=== PATIENT | female | born 1955 | race Caucasian/White ===

== ENCOUNTER 2023-01-30 13:00 | Observation (INO) ==
[2023-01-30] MEDS ORDERED: IOPAMIDOL 100 ML BOTTLE IV ONE (13:01)
[2023-01-30] MEDS ORDERED: 0.9 % SODIUM CHLORIDE 1,000 ML IV ONE (13:27)
[2023-01-30] MEDS ORDERED: IPRATROPIUM/ALBUTEROL 3 ML AMPUL.NEB NEB ONE (13:28)
[2023-01-30 13:37] LABS: POC Calcium, Ionized 0.93 (1.16-1.32); POC Creatinine 0.8 (0.6-1.2); POC Potassium 2.6 (3.3-5.1)
[2023-01-30] MEDS ORDERED: POTASSIUM CHLORIDE 20 MEQ TABLET PO ONE (14:04)
[2023-01-30 14:05] LABS: Basophils # (Auto) 0.02 K/mcL (0.00-0.30); Basophils % (Auto) 0.3 % (0.0-2.0); Eosinophils # (Auto) 0.02 K/mcL (0.00-0.70); Eosinophils % (Auto) 0.3 % (0.0-7.0); Hematocrit 37.2 % (34.1-44.9); Hemoglobin 12.9 g/dL (11.2-15.7); Lymphocytes # (Auto) 0.58 K/mcL (1.50-4.80); Lymphocytes % (Auto) 9.9 % (15.5-49.0); Mean Cell Volume 85.5 fL (80.0-100.0); Mean Corpuscular HGB Conc 34.7 g/dL (31.0-36.0); Mean Platelet Volume 10.1 fL (8.8-12.5); Monocytes # (Auto) 0.44 K/mcL (0.10-0.90); Monocytes % (Auto) 7.5 % (1.0-12.0); Neutrophils % (Auto) 81.5 % (38.0-78.0); Platelet Count 336 K/mcL (140-440); RBC 4.35 M/mcL (3.59-5.38); WBC 5.9 K/mcL (4.5-11.0)
[2023-01-30 14:28] LABS: Bilirubin,Direct 0.2 mg/dL (<0.3); Bilirubin,Total 0.6 mg/dL (0.1-1.0); Globulin 3.1 gm/dL (2.2-3.7)
[2023-01-30 15:13] LABS: proBNP 74.8 pg/mL (<125.0)
[2023-01-30] MEDS ORDERED: ONDANSETRON 4 MG/2 ML VIAL IV PRN (20:09)
[2023-01-30] MEDS ORDERED: LEVALBUTEROL 1.25 MG/3 ML AMPUL.NEB NEB PRN (20:09)
[2023-01-30] MEDS ORDERED: ACETAMINOPHEN 325 MG TABLET PO PRN (20:09)
[2023-01-30] MEDS: DEXTROSE 5%-1/2NS W/20MEQ KCL 1,000 ML IV SCH (20:25)
[2023-01-30] MEDS: 0.9 % SODIUM CHLORIDE 10 ML SYRINGE IV SCH (20:25)
[2023-01-30] MEDS ORDERED: SENNOSIDES 1 TABLET PO SCH (21:00)
[2023-01-30] MEDS: DOCUSATE SODIUM 100 MG CAPSULE PO SCH (21:25)
[2023-01-31] MEDS: 0.9 % SODIUM CHLORIDE 10 ML SYRINGE IV SCH ×2 (05:49→13:14)
[2023-01-31 07:56] LABS: ALT/SGPT 13 U/L (<40); AST/SGOT 17 U/L (<32); Albumin 3.2 gm/dL (3.2-5.2); Albumin/Globulin Ratio 1.3 (1.0-2.3); Alkaline Phosphatase 49 U/L (39-117); Bilirubin,Direct < 0.2 mg/dL (0-0.3); Bilirubin,Total 0.4 mg/dL (0.1-1.0); Blood Urea Nitrogen 4 mg/dL (8-23); Calcium 7.8 mg/dL (8.6-10.4); Carbon Dioxide 18 mmol/L (22-30); Chloride 105 mmol/L (96-108); Globulin 2.5 gm/dL (2.2-3.7); Glomerular Filtration Rate 94; Glucose 120 mg/dL (70-105); Lactate Dehydrogenase 265 U/L (135-225); Phosphorous 1.2 mg/dL (2.5-4.5); Triglycerides 89 mg/dL (<150); Uric Acid 4.5 mg/dL (2.5-8.0)
[2023-01-31] MEDS: DOCUSATE SODIUM 100 MG CAPSULE PO SCH (08:11)
[2023-01-31] MEDS: DEXTROSE 5%-1/2NS W/20MEQ KCL 1,000 ML IV SCH (08:12)
[2023-01-31] MEDS ORDERED: POTASSIUM CHLORIDE 20 MEQ TABLET PO ONE (10:04)
[2023-01-31] MEDS ORDERED: ALBUTEROL SULFATE 60 PUFF INHALER INH PRN (10:23)
[2023-01-31] MEDS ORDERED: POTASSIUM PHOSPHATE 20 MEQ in DEXTROSE 5% IN WATER 250 ML IV ONE (11:00)
[2023-01-31] MEDS ORDERED: SERTRALINE 50 MG TABLET PO SCH (21:00)
[2023-01-31] MEDS ORDERED: buPROPion 150 MG TAB.XL.24H PO SCH (21:00)
[2023-01-31] MEDS ORDERED: ATORVASTATIN 10 MG TABLET PO SCH (21:00)
[2023-01-31] MEDS ORDERED: ENOXAPARIN 40 MG/0.4 ML SYRINGE SQ SCH (21:00)
[2023-01-31] MEDS ORDERED: CELECOXIB 200 MG CAPSULE PO SCH (21:00)
== END 2023-01-31 13:49 | disposition home or self-care (01) ==
LOC: ED 13:00 → MEDSUR 13:00
PROVIDERS: ADMIT Internal Medicine; ATTEND Internal Medicine